=== PATIENT | female | born 1995 | race Two or more races ===

== ENCOUNTER 2020-09-08 08:00 | Outpatient (CLI) | payer OTHER ==
[2020-09-12 21:11] LABS: VARICELLA ZOSTER VZV AB IGG 675.8 index
[2020-09-14 22:08] LABS: VARICELLA ZOSTER VIRUS IGM 0.69
== END 2020-09-08 23:59 | disposition home or self-care (01) ==
LOC: LAB.WCP 08:00
PROVIDERS: ATTEND Nurse Practitioner Family
DX: Z71.89 Other specified counseling (principal)
CPT/HCPCS: 86787